=== PATIENT | male | born 1995 | race Caucasian/White ===

== ENCOUNTER 2023-07-19 17:56 | Emergency (ER) | payer MEDICAID ==
[~2023-07-19] VITALS: Ht 172.7 cm; Wt 117.9 kg
[2023-07-19] MEDS ORDERED: LORazepam 2 MG/ML VIAL ONE (18:01)
[2023-07-19] MEDS ORDERED: HALOPERIDOL IM 5 MG/ML VIAL ONE (18:01)
[2023-07-19 18:02] VITALS: BP 162/88; PULSE 144; RESP 20; TEMP 99.1; O2SAT 98
[2023-07-19] MEDS: HALOPERIDOL IM 5 MG/ML VIAL IM ONE (18:34)
[2023-07-19] MEDS: LORazepam 2 MG/ML VIAL IM ONE (18:34)
[2023-07-19] MEDS: ACETAMINOPHEN EXTRA STRENGTH 500 MG TAB PO ONE (18:48)
[2023-07-19 18:55] LABS: BASOPHILS # (AUTO) 0.1 K/uL (0.00-0.22); BASOPHILS % (AUTO) 0.7 % (0.0-2.0); EOSINOPHILS # (AUTO) 0.1 K/uL (0-0.4); EOSINOPHILS % (AUTO) 0.5 % (0.0-4.0); HEMATOCRIT 41.9 % (36-52); HEMOGLOBIN 14.8 g/dL (12.0-18.0); LYMPHOCYTES # (AUTO) 3.7 K/uL (2.0-11.5); LYMPHOCYTES % (AUTO) 26.2 % (20.5-51.1); MEAN CORPUSCULAR HEMOGLOBIN 30 pg (27-31); MEAN CORPUSCULAR HGB CONC 35 g/dL (33-37); MEAN CORPUSCULAR VOLUME 83.8 fL (80-94); MONOCYTES # (AUTO) 0.5 K/uL (0.8-1.0); MONOCYTES % (AUTO) 3.3 % (1.7-9.3); NEUTROPHILS # (AUTO) 9.9 K/uL (1.8-7.7); NEUTROPHILS % (AUTO) 69.3 % (42.2-75.2); PLATELET COUNT (AUTO) 445 K/uL (140-450); RED CELL DISTRIBUTION WIDTH 12.8 % (11.6-13.7); WHITE BLOOD COUNT (AUTO) 14.3 K/uL (4.8-10.8)
[2023-07-19 19:02] LABS: ANION GAP 22.8 (8-16); CALCIUM 9.6 mg/dL (8.5-10.1); CARBON DIOXIDE 20.1 mmol/L (21-32)
[2023-07-19 19:04] LABS: POTASSIUM 2.9 mmol/L (3.5-5.1)
[2023-07-19] MEDS: POTASSIUM CHLORIDE 10 MEQ TABER PO ONE ×2 (19:14)
[2023-07-19 19:16] LABS: ACETAMINOPHEN < 0.5 ug/ml (10-30); ALCOHOL, BLOOD < 3 mg/dL (<10); SALICYLATE < 2.8 mg/dL (2.8-20.0)
[2023-07-19 19:23] LABS: APPEARANCE,URINE CLEAR (CLEAR); BILIRUBIN,URINE 1+ (NEGATIVE); BLOOD, URINE NEGATIVE (NEGATIVE); COLOR,URINE YELLOW (YELLOW); LEUKOCYTE ESTERASE ,URINE NEGATIVE (NEGATIVE); NITRITE, URINE NEGATIVE (NEGATIVE); PROTEIN,URINE 2+ (NEGATIVE); UGLUCOSE NEGATIVE (NEGATIVE); UROBILINOGEN,URINE 0.2 EU/dL (0.2 - 1)
[2023-07-19 19:38] LABS: AMPHETAMINE, URINE POSITIVE ng/ml (NEG <=1000); BARBITURATE, URINE NEGATIVE ng/ml (NEG <=200); BENZODIAZEPINE, URINE NEGATIVE ng/mL (NEG <=200); CANNABINOID, URINE POSITIVE ng/mL (NEG <=50); COCAINE, URINE NEGATIVE ng/mL (NEG <=300); OPIATE, URINE NEGATIVE ng/mL (NEG <=2000); PHENCYCLIDINE SCREEN,URINE NEGATIVE ng/mL (NEG <=25)
[2023-07-19 19:44] LABS: ICTOTEST POSITIVE (NEGATIVE)
[2023-07-19 19:50] LABS: BACTERIA,URINE FEW /HPF (None Seen); RBC,URINE 0-5 /HPF (0-5); SQUAMOUS EPITHELIAL CELL,UR 0-3 (FEW) /LPF (0-3 (FEW)); WBC,URINE 0-5 /HPF (0-5)
[2023-07-19] MEDS: NACL 0.9% 2,000 ML IV ONE (19:50)
[2023-07-19 19:51] LABS: MUCUS,URINE None Seen /LPF (None Seen); TRICHOMONAS,URINE None Seen /HPF (None Seen); WHITE BLOOD CELL CASTS,URINE None Seen /LPF (None Seen); YEAST,URINE None Seen /HPF (None Seen)
[2023-07-19] MEDS: NACL 0.9% 1,000 ML IV ONE (21:50)
[2023-07-20 07:22] VITALS: BP 101/59; PULSE 88; RESP 17; TEMP 98.1
[2023-07-20 07:28] VITALS: O2SAT 99
[2023-07-20 09:28] VITALS: O2SAT 99
== END 2023-07-20 08:42 | disposition home or self-care (01) ==
LOC: MED 17:56
DX: R40.1 Stupor (principal); F15.129 Other stimulant abuse with intoxication, unspecified; R45.1 Restlessness and agitation; R00.2 Palpitations; R44.0 Auditory hallucinations; R00.0 Tachycardia, unspecified; F41.9 Anxiety disorder, unspecified
CPT/HCPCS: 36415; 80048; 80305; 81001; 85025; 87040; 93005; 96360; 96361; 96372; 99285; G0480; G0482; J1630; J2060; J7030